=== PATIENT | male | born 1995 | race African-American/Black ===

== ENCOUNTER 2017-06-07 06:06 | Emergency (ER) | payer OTHER ==
[~2017-06-07] VITALS: Ht 177.8 cm; Wt 61.2 kg
--- NOTE | 2017-06-07 06:06 | NUR ---
to bed 3 bib paramedics c/o bizarre behavior. [place] found [place] the bus stop covered with a blanket. pt report taking meth last night. pt verbalize si without a specific plan, pt denies hi. pt aaox3 no acute distress noted, resp even and unlabored. place pt on cardiac monitoring, continuous pox. er md at bedside to eval pt with orders received. will carry out orders.
[2017-06-07 06:30] LABS: BASOPHILS % (AUTO) 0.3 % (0.0-2.0); HEMATOCRIT 42 % (39-51); HEMOGLOBIN 14.3 g/dL (13.5-17.5); LYMPHOCYTES # (AUTO) 1.1 /CMM (0.8-4.8); LYMPHOCYTES % (AUTO) 10.7 % (20.0-44.0); MEAN CORPUSCULAR HEMOGLOBIN 27 PG (26.0-33.0); MEAN CORPUSCULAR HGB CONC 34 g/dl (31.0-36.0); MEAN CORPUSCULAR VOLUME 81 fL (80-96); MONOCYTES # (AUTO) 0.4 /CMM (0.1-1.30); MONOCYTES % (AUTO) 3.5 % (2.0-12.0); NEUTROPHILS # (AUTO) 8.8 /CMM (1.8-8.9); NEUTROPHILS % (AUTO) 85.5 % (43.0-81.0); PLATELET COUNT (AUTO) 333 /CMM (150-450); RDW COEFFICIENT OF VARIATION 13.4 (11.5-15.0); RED BLOOD CELL COUNT(AUTO) 5.24 MIL/uL (4.5-6.0); WHITE BLOOD COUNT (AUTO) 10.3 K/uL (4.3-11.0)
[2017-06-07] MEDS ORDERED: LORAZEPAM INJ 2 MG/ML VIAL IVP ONE (06:30)
[2017-06-07] MEDS ORDERED: OLANZAPINE 10 MG VIAL IM ONE ×2 (06:30→06:32)
[2017-06-07] MEDS ORDERED: LORAZEPAM INJ 2 MG/ML VIAL ONE (06:34)
--- NOTE | 2017-06-07 06:45 | NUR ---
pt medicated by rn per er md order.
[2017-06-07 06:51] LABS: CALCIUM, SERUM 10.3 mg/dL (8.5-10.1); CARBON DIOXIDE 22 mmol/L (21-32); CHLORIDE 106 mmol/L (98-107); CREATININE 0.9 mg/dL (0.6-1.3); GLUCOSE 65 mg/dL (74-106); POTASSIUM 3.5 mmol/L (3.5-5.1); SODIUM SERUM 144 mmol/L (136-145); UREA NITROGEN, BLOOD 13 mg/dL (7-18)
--- NOTE | 2017-06-07 06:52 | NUR ---
urine sample collected and sent to lab.
[2017-06-07 06:59] LABS: ALANINE AMINOTRANSFERASE 37 U/L (12-78); ALBUMIN 4.4 g/dL (3.4-5.0); ALKALINE PHOSPHATASE 90 U/L (46-116); ASPARTATE AMINOTRANSFERASE 45 U/L (15-37); BILIRUBIN,DIRECT 0.2 mg/dL (0.0-0.2); BILIRUBIN,TOTAL 0.7 mg/dL (0.2-1.0); SALICYLATE 3.1 mg/dL (2.8-20.0); TOTAL PROTEIN, SERUM 8.7 g/dL (6.4-8.2)
[2017-06-07 07:00] LABS: ACETAMINOPHEN < 1 ug/ml (10-30); ALCOHOL, BLOOD 4 mg/dL (0-0)
[2017-06-07 07:29] LABS: APPEARANCE,URINE CLEAR (CLEAR); BILIRUBIN,URINE 1+ (NEGATIVE); BLOOD, URINE NEGATIVE Ery/uL (NEGATIVE); COLOR,URINE YELLOW (YELLOW); KETONES,URINE 3+ (NEGATIVE); LEUKOCYTE ESTERASE ,URINE NEGATIVE (NEGATIVE); NITRITE, URINE NEGATIVE (NEGATIVE); PROTEIN,URINE TRACE mg/dl (NEGATIVE); UGLUCOSE NEGATIVE (NEGATIVE)
[2017-06-07 08:04] LABS: BACTERIA,URINE Rare /HPF (None Seen); RBC,URINE 0-2 /HPF (0-2); SQUAMOUS EPITHELIAL CELL,UR Rare /HPF (None Seen); WBC,URINE 0-2 /HPF (0-3)
--- NOTE | 2017-06-07 08:30 | NUR ---
PT RESTING COMFORTABLY IN BED. NAD NOTED. VSS.
--- NOTE | 2017-06-07 13:53 | NUR ---
PT RESTING COMFORTABLY IN BED. NAD NOTED. VSS.
--- NOTE | 2017-06-07 17:17 | NUR ---
SHAYNA PRICE PAGED ETA ~30-60 MIN
--- NOTE | 2017-06-07 17:29 | NUR ---
called BRIANNE Galeana for psych eval ETA 1hr
--- NOTE | 2017-06-07 19:25 | NUR ---
FOOD TRAY GIVEN TO PT. PT EATING
--- NOTE | 2017-06-07 19:27 | NUR ---
RECEIVED REPORT FOR DIANA FROM BRIANNE VO
--- NOTE | 2017-06-07 20:45 | NUR ---
UNIT 106 FROM [facility] BEDSIDE FOR PT TRANSPORT. PT PLACED ON AMBULN GURTORREON.
[2017-06-07 20:47] VITALS: BP 116/86
== END 2017-06-07 20:53 ==
LOC: ER 06:07
DX: F15.10 Other stimulant abuse, uncomplicated (principal); F29 Unspecified psychosis not due to a substance or known physiological condition; F20.9 Schizophrenia, unspecified
CPT/HCPCS: 36415; 80048; 80076; 80305; 80329; 81001; 85025; 96372; 96374; 99285; A4606; G0480 ×2; J2060; J3490; Z7610; 81000-TC